=== PATIENT | female | born 1970 | race Two or more races ===

== ENCOUNTER 2023-08-23 05:36 | Emergency (ER) | payer OTHER ==
[~2023-08-23] VITALS: Ht 162.6 cm; Wt 77.1 kg
[2023-08-23] MEDS ORDERED: SYNTHROID50 MCG PO (05:50)
[2023-08-23] MEDS ORDERED: COZAAR100 MG PO (05:50)
[2023-08-23] MEDS ORDERED: CITALOPRAM HBR10 MG PO (05:51)
[2023-08-23] MEDS ORDERED: ONDANSETRON HCL 2 MG/ML VIAL IV STA (06:16)
[2023-08-23] MEDS ORDERED: FAMOTIDINE/PF 20 MG/2 ML VIAL IV PUSH STA (06:17)
[2023-08-23] MEDS ORDERED: LACTOBACILLUS ACIDOPHILUS 1 CAP CAP PO STA (06:17)
[2023-08-23] MEDS ORDERED: HYOSCYAMINE SULFATE 0.125 MG TAB.SUBL SL ONE (06:30)
[2023-08-23] MEDS ORDERED: 0.9 % SODIUM CHLORIDE 1,000 ML IV ONE (06:30)
[2023-08-23 06:54] LABS: HEMATOCRIT 39.3 % (36.0-45.00); HEMOGLOBIN 13.5 g/dL (12.0-15.00); MEAN CELL VOLUME 86.3 fL (80.00-100.00); MEAN CORPUSCULAR HEMOGLOBIN 29.6 pg (27.00-32.0); MEAN CORPUSCULAR HGB CONC 34.3 g/dl (32.0-36.0); PLATELET COUNT 227 K/uL (150-450); RED BLOOD COUNT 4.55 M/uL (4.00-6.00); RED CELL DISTRIBUTION WIDTH 14.2 % (11.5-14.5)
[2023-08-23 08:02] LABS: CALCIUM 9.6 mg/dL (8.5-10.1); CREATININE SERUM 0.82 mg/dL (0.55-1.02); GFR 72.92; POTASSIUM 3.94 mEq/L (3.5-5.1)
[2023-08-23 10:33] LABS: PH,URINE 5.5 (5.0-8.0); URINE APPEARANCE Cloudy; URINE BILIRRUBIN Negative (NEGATIVE); URINE BLOOD Negative; URINE COLOR Yellow; URINE GLUCOSE Negative (NEGATIVE); URINE LEUKOCYTE Negative; URINE NITRATE Negative; URINE PROTEIN 30 (NEGATIVE); URINE UROBILINOGEN 0.2 E.U./dl
[2023-08-23 10:37] LABS: URINE BACTERIA 4162.9 uL (0.0-1933); URINE EPITHELIAL CELLS 149.4 uL (0.0-38.8); URINE RBC 16.4 uL (0.0-20.8); URINE WBC 28.9 uL (0.0-23.2)
[2023-08-23 10:55] LABS: URINE MUCUS HEAVY
[2023-08-23 10:56] LABS: URINE CRYSTALS FEW /HPF
== END 2023-08-23 14:44 | disposition home or self-care (01) ==
LOC: ER 05:37
PROVIDERS: General Practice
DX: R19.7 Diarrhea, unspecified (principal); S09.8XXA Other specified injuries of head, initial encounter; W18.39XA Other fall on same level, initial encounter; Y93.89 Activity, other specified; Y92.018 Other place in single-family (private) house as the place of occurrence of the external cause; Z20.822 Contact with and (suspected) exposure to COVID-19; I10 Essential (primary) hypertension